=== PATIENT | male | born 1995 | race Hispanic/Latino ===

== ENCOUNTER 2021-01-17 12:40 | Emergency (ER) | payer OTHER ==
[~2021-01-17] VITALS: Ht 172.7 cm; Wt 89.9 kg
[2021-01-17 16:29] LABS: BASO % 0.4 % (0.0-1.0); EOS % 0.5 % (0.0-3.0); HEMATOCRIT 46.6 % (42.0-52.0); HEMOGLOBIN 15.5 g/dl (13.5-17.5); LYMPH # 1.6 10^3/uL (1.5-5.0); LYMPH % 20.6 % (24.0-44.0); MEAN CORPUSCULAR HEMOGLOBIN 30.4 pg (27.0-33.0); MEAN CORPUSCULAR HGB CONC 33.3 g/dl (32.0-36.5); MEAN CORPUSCULAR VOLUME 91.4 fl (80.0-96.0); MONO # 0.9 10^3/uL (0.0-0.8); MONO % 11.7 % (2.0-8.0); NEUTROPHILS % 66.3 % (36.0-66.0); PLATELET COUNT, AUTOMATED 341 10^3/uL (150-450); WHITE BLOOD COUNT 7.6 10^3/uL (4.0-10.0)
[2021-01-17] MEDS ORDERED: ISOVUE-370 76% 100ML VIAL As Ordered ONE (16:50)
--- NOTE | 2021-01-17 18:56 | REPVR ---
PROCEDURE INFORMATION: Exam: CT Abdomen And Pelvis With Contrast Exam date and time: 01/17/2021 5:13 PM Age: 25 years old Clinical indication: Other: Inc umbilical hernia pain/cannot reduce TECHNIQUE: Imaging protocol: Computed tomography of the abdomen and pelvis with contrast. Radiation optimization: All CT scans at this facility use at least one of these dose optimization techniques: automated exposure control; mA and/or kV adjustment per patient size (includes targeted exams where dose is matched to clinical indication); or iterative reconstruction. Contrast material: ISOVUE 370; Contrast volume: 100 ml; Contrast route: INTRAVENOUS (IV); COMPARISON: No relevant prior studies available. FINDINGS: Liver: Unremarkable. No mass. Gallbladder and bile ducts: Unremarkable. No calcified stones. No ductal dilation. Pancreas: Unremarkable. No ductal dilation. Spleen: Unremarkable. No splenomegaly. Adrenal glands: Normal. No mass. Kidneys and ureters: 15 mm cyst in the left kidney lower pole. No left renal stone or hydronephrosis. Normal right kidney and right ureter. Stomach and bowel: Unremarkable. No obstruction. No mucosal thickening. Appendix: No evidence of appendicitis. Intraperitoneal space: Unremarkable. No free air. No significant fluid collection. Vasculature: Unremarkable. No abdominal aortic aneurysm. Lymph nodes: Unremarkable. No enlarged lymph nodes. Urinary bladder: Unremarkable as visualized. Reproductive: Unremarkable as visualized. Bones/joints: No acute fracture. Soft tissues: 8 mm umbilical hernia defect and possible 4 mm adjacent paraumbilical hernia defect, both containing fat. No bowel incarceration. IMPRESSION: Umbilical and possible tiny paraumbilical hernias containing fat. COMMENTS: Consistent with the [employer]'s Incidental Findings Committee white paper (J Am Ayo Radiol 2018): Any incidental renal lesion less than 1 cm or classified as too small to characterize, or any incidental cystic renal lesion characterized as simple-appearing, is likely benign. No follow-up imaging is recommended for these lesions per consensus recommendations based on imaging criteria. Electronically signed by: Niels Suarez On 01/17/2021 18:56:21 PM
[2021-01-17 19:46] VITALS: BP 133/85
== END 2021-01-17 19:49 | disposition home or self-care (01) ==
LOC: M ED 12:40
DX: K42.9 Umbilical hernia without obstruction or gangrene (principal); R19.7 Diarrhea, unspecified; N28.1 Cyst of kidney, acquired
CPT/HCPCS: 36415; 74177; 80047; 85025; 99284; Q9967